=== PATIENT | female | born 2000 | race Caucasian/White ===

== ENCOUNTER 2023-12-15 19:07 | Emergency (ER) | payer OTHER ==
[~2023-12-15] VITALS: Ht 167.6 cm; Wt 81.4 kg
[2023-12-15 19:08] VITALS: TEMP 98
[2023-12-15 19:29] LABS: BASO % 0.2 % (0.0-2.0); EOS # 0.1 K/mm3 (0.0-0.7); EOS % 1.1 % (0.0-4.0); GRAN # 5.5 K/mm3 (1.4-6.5); GRAN % 59.6 % (42.2-75.2); HEMATOCRIT 38.3 % (37.0-47.0); HEMOGLOBIN 13.2 g/dl (12.5-16.0); LYMPH % 32.5 % (20.0-51.0); MEAN CELL VOLUME 83 fl (80.0-100.0); MEAN CORPUSCULAR HEMOGLOBIN 29 pg (27-31); MEAN CORPUSCULAR HGB CONC 35 g/dl (33.0-37.0); MEAN PLATELET VOLUME 11.5 fl (7.4-10.4); MONO # 0.6 K/mm3 (0.1-0.6); MONO % 6.4 % (1.7-9.3); PLATELET COUNT 253 K/mm3 (130-400); RED BLOOD COUNT 4.62 M/mm3 (4.10-5.30); REDCELL DISTRIBUTION WIDTH-CV 12.4 % (11.5-14.5)
[2023-12-15] MEDS ORDERED: LORazepam 2 MG/ML 1 ML VIAL IV ONE (19:30)
[2023-12-15] MEDS ORDERED: NS 1,000 ML IV ONE (19:30)
[2023-12-15 19:42] LABS: ALBUMIN 4.3 gm/dL (3.5-5.0); BILIRUBIN,TOTAL 0.5 mg/dL (0.2-1.2); CALCIUM 8.8 mg/dL (8.4-10.2); CREATININE, serum 0.8 mg/dL (0.57-1.11); POTASSIUM 3.7 mmol/L (3.5-4.5); TOTAL PROTEIN 7.6 gm/dL (6.2-8.1)
[2023-12-15 21:18] VITALS: BP 114/71; PULSE 86
== END 2023-12-15 21:18 | disposition home or self-care (01) ==
LOC: COL.ER 19:07
PROVIDERS: Emergency Medicine
DX: R56.9 Unspecified convulsions (principal); S00.512A Abrasion of oral cavity, initial encounter; R74.01 Elevation of levels of liver transaminase levels; F17.210 Nicotine dependence, cigarettes, uncomplicated; X58.XXXA Exposure to other specified factors, initial encounter
CPT/HCPCS: J2060; J7030